=== PATIENT | female | born 1970 | race Caucasian/White ===

== ENCOUNTER → 2022-06-11 | Outpatient (CLI) | payer BC ==
--- NOTE | 2022-06-12 18:55 | MM ---
Reason for Exam: Screening (asymptomatic). Patient History: Menarche at age 12. First Full-Term at age 18. Left ovary removed at age 44. Hysterectomy at age 44. Postmenopausal. Risk Values: Joellen 5 year model risk: 0.7%. NCI Lifetime model risk: 6.4%. Tissue Density: There are scattered fibroglandular densities. Findings: Analyzed By CAD. Benign bilateral oil cyst calcifications. Multiple marker indicates the patient's skin lesion as described by the technologist medial posterior left breast. No significant mass, suspicious microcalcification, or other discrete abnormality is seen. Overall Assessment: Benign, BI-RAD 2 Management: Screening Mammogram of both breasts in 1 year. If the patient's 10:00 posterior left breast skin lesion is symptomatic or is enlarging, consider dermatology referral. Otherwise, patient should continue monthly self breast exams. This exam should not preclude additional follow-up of suspicious palpable abnormalities. Electronically signed and approved by: Dena Armstrong M.D. Radiologist
== END | disposition home or self-care (01) ==
LOC: RADMAMWWP 15:35
PROVIDERS: ATTEND Family Medicine
DX: Z12.31 Encounter for screening mammogram for malignant neoplasm of breast (principal)
CPT/HCPCS: 77063; 77067

== ENCOUNTER → 2024-09-08 | Outpatient (CLI) | payer BC ==
--- NOTE | 2024-09-08 10:59 | MM ---
Reason for Exam: Screening (asymptomatic). Last mammogram was performed 2 year(s) and 3 month(s) ago. Patient History: Menarche at age 12. First Full-Term at age 18. Left ovary removed at age 44. Hysterectomy at age 44. Postmenopausal. Risk Values: Joellen 5 year model risk: 0.8%. NCI Lifetime model risk: 6.1%. Prior Study Comparison: 06/11/2022 Bilateral MG 3D screening mammo w/cad, [facility]. Tissue Density: There are scattered areas of fibroglandular density. Findings: Analyzed By CAD. Some regional benign-appearing Calcifications in bilateral breasts are redemonstrated. Benign-appearing bilateral axillary lymph nodes are redemonstrated. There is no suspicious new group of microcalcifications or new suspicious mass in either breast. Overall Assessment: Benign, BI-RAD 2 Management: Screening Mammogram of both breasts in 1 year. . Patient should continue monthly self-breast exams. A clinical breast exam by your physician is recommended on an annual basis. This exam should not preclude additional follow-up of suspicious palpable abnormalities. Note on Joellen scores and lifetime risk: 1. A Joellen score greater than 3% is considered moderate risk. If this is the case, consider specialist referral to assess eligibility for a risk reducing agent. 2. If overall lifetime risk for the development of breast cancer is 20% or higher, the patient may qualify for future screening with alternating mammogram and breast MRI. [facility], , 09/08/2024 10:55 AM. Electronically signed and approved by: Nadeem Mcdonough M.D.
== END | disposition home or self-care (01) ==
LOC: RADMAMWWP 10:35
PROVIDERS: ATTEND Family Medicine
DX: Z12.31 Encounter for screening mammogram for malignant neoplasm of breast (principal); Z90.721 Acquired absence of ovaries, unilateral; Z78.0 Asymptomatic menopausal state; R92.323 Mammographic fibroglandular density, bilateral breasts
CPT/HCPCS: 77067